=== PATIENT | female | born 1960 | race Caucasian/White ===

== ENCOUNTER 2016-11-13 10:29 | Inpatient (IN) | payer OTHER ==
--- NOTE | 2016-11-13 11:30 | EDPHY ---
H & P Stated Complaint: eyes don't feeel like they're focusing going on for 1 week "i think cristopher higuera Time Seen by Provider: 11/13/16 11:29 - Personal History Current Tetanus/Diphtheria Vaccine: Yes Current Tetanus Diphtheria and Acellular Pertussis (TDAP): Yes - Medical/Surgical History Hx Asthma: No Hx Chronic Respiratory Disease: No Hx Diabetes: No Hx Cardiac Disease: No Hx Renal Disease: No Hx Cirrhosis: No Hx Alcoholism: No Hx HIV/AIDS: No Hx Splenectomy or Spleen Trauma: No Other PMH: breast ca in 1998 - Social History Smoking Status: Never smoked Constitutional: Initial Vital Signs Temperature (C) 37.2 C 11/13/16 10:32 Heart Rate 108 H 11/13/16 10:32 Respiratory Rate 16 11/13/16 10:32 Blood Pressure 147/85 H 11/13/16 10:32 O2 Sat (%) 97 11/13/16 10:32 O2 Delivery Mode Room Air Allergies/Adverse Reactions: No Known Allergies Allergy (Verified 04/17/14 16:29) Home Medications: Medication Instructions Recorded C/E/Zn/Cu/OM3/DHA/EPA/LUT/ZEAX 1 each PO DAILY 11/13/16 [Preservision Areds 2 Softgel] Herbals/Supplements -Info Only 1 ea PO DAILY 11/13/16 Multivitamins [Multivitamin (*)] 1 each PO DAILY 11/13/16 Ovid-3 Fatty Acids [Fish Oil 1000 1,000 mg PO DAILY 11/13/16 mg (*)] Medical Decision Making ED Course/Re-evaluation: CHIEF COMPLAINT: Word-finding difficulties HISTORY OF PRESENT ILLNESS: 56-year-old female who claims that about 2 months ago her menopause kicked in very strongly. She states that her and her noticed that she was having difficulty thinking of words or possibly a stating the words she was thinking of. She also claims that her gait has been a little bit wobbly. She states that her right eye seems a little blurry at times. She denies any fevers or chills. She denies any infectious symptoms. She denies any trauma. She believes that this is menopause. She states that abruptly a couple months ago she started having these troubles which very specifically have to do with her ability to communicate with people. REVIEW OF SYSTEMS: A 10 point review of systems was performed and is negative with the exception of the elements mentioned in the history of present illness. PHYSICAL EXAM: HR, BP, O2 Sat, RR. Temp noted General Appearance: Alert, well hydrated, appropriate, and non-toxic appearing. Head: Atraumatic without scalp tenderness or obvious injury Eyes: Pupils equal, round, reactive to light and accommodation, EOMI, no trauma , no injection. Ears: Clear bilaterally, no perforation, normal landmarks Nose: Atraumatic, no rhinorrhea, clear. Throat: There is no erythema or exudates, no lesions, normal tonsils, mucus membranes moist. Neck: Supple, 2+ carotid upstroke, nontender, no lymphadenopathy. Respiratory: No retractions, no distress, no wheezes, and no accessory muscle use. Lungs are clear to auscultation bilaterally. Cardiovascular: Regular rate and rhythm, no murmurs, rubs, or gallops. Bilateral carotid, radial, dorsalis pedis, and posterior tibial pulses intact. Good capillary refill all extremities. Gastrointestinal: Abdomen is soft, nontender, non-distended, no masses, no rebound, no guarding, no peritoneal signs. Musculoskeletal: Normal active ROM of all extremities, atraumatic. Neurological: This patient has what I believe to be a mild Broca's aphasia. Alert, appropriate, and interactive. The patient has normal DTRs and non-focal cranial nerves, motor, sensory, and cerebellar exam. Skin: No rashes, good turgor, no nodules on palpation. Past medical history: Patient denies besides remote history of left breast cancer and menopause Past surgical history: Left lumpectomy Family history: Noncontributory Social history: , lives at home with her , does not abuse tobacco drugs or alcohol, retired DIAGNOSTICS/PROCEDURES/CRITICAL CARE TIME: Study: MRI of the: Brain with and without contrast Indication: possible Broca's aphasia Results: MRI scan of the body parts was obtained. The results of the study are 5x5x4.7cm meningioma. I viewed the images myself on the PACS system. DIFFERENTIAL DIAGNOSIS: The differential diagnosis for the patient's neurologic deficits included but was not limited to peripheral causes, central causes including CVA, TIA, electrolyte abnormalities and dehydration, cardiogenic causes, atypical causes like migraine syndrome. MEDICAL DECISION MAKING: This patient had an abrupt onset approximately 2 maybe 3 months ago of difficulty with speech and some gait disturbance. She has been blame it on menopause and has not sought medical care. 1 of her friends mention that she just does not seem right and she should get checked out so she presented here today. Neurologically she does have a mild Broca's aphasia. She does not have any peripheral deficits that I can elicit. MRI without contrast of the brain additional laboratory studies are pending. This patient is not exhibiting any infectious symptoms. The MRI per radiology shows a large baseball-sized meningioma that is clearly the cause of the patient's symptoms. The patient was given Keppra to prophylax seizures. I spoke to Dr. Elder, neurosurgery. He recommends 10mg IV Decadron in addition to the Keppra and will most likely take the patient to the operating room. 1320: Reassessed patient. I informed her of the MRI results. Dr. Elder will admit the patient for the time being. 1334: Consulted with Dr. Elder, who has viewed the patient's imaging. He will have us admit the patient to the hospitalist to be cleared for surgery. 1344: Consulted with Amaris Sanford, hospitalist. She accepts admission for Dr. Pelayo. 1404: Consulted with Dr. Elder after his evaluation of the patient. He recommends borja-scanning the patient prior to surgery. The majority of these studies will be performed when she is on the floor. - Data Points Laboratory Results: Laboratory Results 11/13/16 11:30 11/13/16 11:30 11/13/16 11/13/16 11/13/16 11:55 11:40 11:30 WBC 7.93 10^3/uL (3.80-9.50) RBC 4.58 10^6/uL (4.18-5.33) Hgb 14.8 g/dL (12.6-16.3) POC Hgb 15.0 gm/dL (12.3-15.9) Hct 42.0 % (38.0-47.0) POC Hct 44 % (35.5-47.5) MCV 91.7 fL (81.5-99.8) MCH 32.3 pg (27.9-34.1) MCHC 35.2 g/dL (32.4-36.7) RDW 12.6 % (11.5-15.2) Plt Count 284 10^3/uL (150-400) MPV 10.1 fL (8.7-11.7) Neut % (Auto) 74.7 H % (39.3-74.2) Lymph % (Auto) 18.7 % (15.0-45.0) [place] % (Auto) 5.3 % (4.5-13.0) Eos % (Auto) 0.1 L % (0.6-7.6) Baso % (Auto) 0.8 % (0.3-1.7) Nucleat RBC Rel Count 0.0 % (0.0-0.2) Absolute Neuts (auto) 5.93 10^3/uL (1.70-6.50) Absolute Lymphs (auto) 1.48 10^3/uL (1.00-3.00) Absolute Monos (auto) 0.42 10^3/uL (0.30-0.80) Absolute Eos (auto) 0.01 L 10^3/uL (0.03-0.40) Absolute Basos (auto) 0.06 10^3/uL (0.02-0.10) Absolute Nucleated RBC 0.00 10^3/uL (0-0.01) Immature Gran % 0.4 % (0.0-1.1) Immature Gran # 0.03 10^3/uL (0.00-0.10) POC Sodium 142 mEq/L (134-144) Sodium 140 mEq/L (134-144) POC Potassium 3.6 mEq/L (3.3-5.0) Potassium 3.9 mEq/L (3.5-5.2) POC Chloride 104 mEq/L (96-108) Chloride 104 mEq/L (97-110) Carbon Dioxide 25 mEq/l (22-31) Anion Gap 11 mEq/L (8-16) POC BUN 7 mg/dL (7-23) BUN 8 mg/dL (7-23) Creatinine 0.7 mg/dL (0.6-1.0) POC Creatinine 0.6 mg/dL (0.6-1.2) Estimated GFR > 60 Glucose 104 H mg/dL (70-100) POC Glucose 110 H mg/dL (70-100) Calcium 9.4 mg/dL (8.5-10.4) Urine Color PALE YELLOW Urine Appearance CLEAR Urine pH 7.0 (5.0-7.5) Ur Specific [place] 1.004 (1.002-1.030) Urine Protein NEGATIVE (NEGATIVE) Urine Ketones NEGATIVE (NEGATIVE) Urine Blood 1+ H (NEGATIVE) Urine Nitrate NEGATIVE (NEGATIVE) Urine Bilirubin NEGATIVE (NEGATIVE) Urine Urobilinogen NEGATIVE EU (0.2-1.0) Ur Leukocyte Esterase NEGATIVE (NEGATIVE) Urine RBC 25-50 H /hpf (0-3) Urine WBC NONE SEEN /hpf (0-3) Ur Epithelial Cells TRACE /lpf (NONE-1+) Ur Culture Indicated? NOT INDICATED (NI) Urine Glucose NEGATIVE (NEGATIVE) Medications Given: Discontinued Medications Dexamethasone (Decadron Injection) 10 mg IVP EDNOW ONE Stop: 11/13/16 13:20 Last Admin: 11/13/16 13:49 Dose: 10 mg Sodium Chloride (Ns) 1,000 mls @ 0 mls/hr IV ONCE ONE PRN Reason: Wide Open Stop: 11/13/16 11:40 Last Admin: 11/13/16 13:48 Dose: 1,000 mls Levetiracetam 1,000 mg/ Sodium (Chloride) 110 mls @ 440 mls/hr IV EDNOW ONE Stop: 11/13/16 13:19 Last Admin: 11/13/16 13:40 Dose: 110 mls Point of Care Test Results: 11/13/16 11:40 POC Sodium 142 POC Potassium 3.6 POC Chloride 104 POC BUN 7 POC Creatinine 0.6 POC Glucose 110 H Departure - Departure Disposition: [facility] Clinical Impression: Brain mass, Aphasia Condition: Fair Report Scribed for: Jhon Landeros Report Scribed by: Eulalio Pereira Date of Report: 11/13/16 Time of Report: 13:05
[2016-11-13] MEDS ORDERED: NS 1,000 ML IV ONE (11:39)
--- NOTE | 2016-11-13 11:58 | CPEKG ---
Heart Rate: 92 RR Interval: 652 P-R Interval: 148 QRSD Interval: 84 QT Interval: 384 QTC Interval: 476 P [place]: 35 QRS [place]: -3 T Wave [place]: 35 EKG Severity - NORMAL ECG - EKG Impression: SINUS RHYTHM Electronically Signed By: Jhon Landeros 13-Nov-2016 21:18:04
[2016-11-13 11:59] LABS: % IMMATURE GRANULYOCYTES 0.4 % (0.0-1.1); ABSOLUTE IMMATURE GRANULOCYTES 0.03 10^3/uL (0.00-0.10); ADD DIFF? NO; ADD MORPH? NO; ADD SCAN? NO; ATYPICAL LYMPHOCYTE FLAG 10 (0-99); FRAGMENT RBC FLAG 0 (0-99); HEMOGLOBIN 14.8 g/dL (12.6-16.3); LEFT SHIFT FLG 0 (0-99); LIPEMIA HEMOLYSIS FLAG 90 (0-99); MEAN CELL HEMOGLOBIN 32.3 pg (27.9-34.1); MEAN CELL HEMOGLOBIN CONCENTR. 35.2 g/dL (32.4-36.7); MEAN CELL VOLUME 91.7 fL (81.5-99.8); MEAN PLATELET VOLUME 10.1 fL (8.7-11.7); PLATELET CLUMPS FLAG 0 (0-99); PLATELET COUNT 284 10^3/uL (150-400); RED BLOOD CELL COUNT 4.58 10^6/uL (4.18-5.33); RED CELL DISTRIBUTION WIDTH 12.6 % (11.5-15.2)
[2016-11-13 12:12] LABS: ANION GAP 11 mEq/L (8-16); CALCIUM 9.4 mg/dL (8.5-10.4); CARBON DIOXIDE 25 mEq/l (22-31); CHLORIDE 104 mEq/L (97-110); CREATININE 0.7 mg/dL (0.6-1.0); GLOMERULAR FILTRATION RATE > 60; GLUCOSE 104 mg/dL (70-100); POTASSIUM 3.9 mEq/L (3.5-5.2); SODIUM 140 mEq/L (134-144)
[2016-11-13 12:12] LABS: COLOR PALE YELLOW; LEUKOCYTE ESTERASE,URINE NEGATIVE (NEGATIVE); NITRITE,URINE NEGATIVE (NEGATIVE)
[2016-11-13] MEDS ORDERED: GADOBUTROL 10 ML VIAL IVP ONE ×2 (12:22→19:28)
[2016-11-13 12:26] LABS: RBC,URINE 25-50 /hpf (0-3)
[2016-11-13 12:29] LABS: WBC,URINE NONE SEEN /hpf (0-3)
[2016-11-13] MEDS ORDERED: levETIRAcetam 1,000 MG in NS 100 ML IV ONE (13:05)
[2016-11-13] MEDS ORDERED: DEXAMETHASONE 10 MG/ML VIAL IVP ONE (13:19)
[2016-11-13] MEDS ORDERED: DEXAMETHASONE 10 MG/ML VIAL ONE (13:19)
--- NOTE | 2016-11-13 13:27 | MR ---
MRI of the Brain (Without and With Contrast) 1205 hours Clinical Indication: Word finding difficulties. Technique: T1-weighted images were acquired axially and sagittally from the foramen magnum to the ve rtex. Axial fast inversion recovery, fast T2-weighted, and diffusion-weighted axial images were obta ined without contrast. Postcontrast axial, coronal, and sagittal T1-weighted images with the uneventf ul intravenous administration of 6.5 mL Gadavist contrast. Findings: Extending from the left middle cranial fossa paracavernous region, there is a heterogeneou s enhancing mass measuring 4.7 x 5 cm in axial dimension and 5.5 cm in cephalocaudal dimension which abuts the left paracavernous region, left side of the paracavernous carotid, extending cephalad and d isplacing the left middle cerebral artery vessels ventrally. The lesion has slightly decreased T2 sig nal with large surrounding vessels and heterogeneous enhancement most likely representing a meningiom a. The mass is just posterior to the left sylvian fissure. There is surrounding edema involving the p osterior aspect of the left temporal and parietal lobes with mass effect on the left cerebral hemisph ere and resulting rightward midline shift, right subfalcine herniation of 15 mm. Partial effacement o f the left lateral ventricle. Enlargement of the right lateral ventricle and temporal horn suggesting partial occlusion of the third ventricle with mild right-sided hydrocephalus. The brainstem especial ly mesencephalon and left cerebral peduncle are displacing compressed towards the right. Fourth ventr icle is patent. No additional enhancing lesions. No acute infarct, acute hemorrhage, or epidural/subdural hematomas. Pituitary gland is normal in size. Cerebellar tonsils are in normal position. Paranasal sinuses are c lear. Impression: Left temporal lobe extraaxial 5 x 4.7 x 5.5 cm heterogeneous enhancing lesion most likel y representing meningioma with large amount of surrounding edema and mass effect resulting in rightwa rd subfalcine and uncal herniation with 15 mm rightward shift and ventriculomegaly. Findings and recommendations discussed with Emergency Department physician, Dr. Jhon Landeros, at 1305 hours today. Final report concurs with initial preliminary interpretation.
--- NOTE | 2016-11-13 14:40 | PDHOSCONS ---
Hospitalist Consult Hospitalist Consult: Date of service 11/13/2016 Requesting physician: Dr. Elder Reason for consult: Medical management History of presenting illness: This is a 56-year-old female with history of breast cancer diagnosed in 1998 treated with lumpectomy, chemotherapy, and radiation who has had negative mammograms presents to the emergency department today with memory loss, troubles with her balance common vision changes. Over the past year the patient has noticed some memory loss which she has attributed to menopause. Her family notes that her memory loss has gotten worse over the past few months. Patient came to the emergency department today for further evaluation where she was found to have a large brain mass. Patient denies any subjective numbness or weakness in her extremities. She has been having some trouble walking which she attributes problems with balance. She sustained a mechanical fall a few days ago which she did not tell anyone about. She denies any fevers. She denies any nausea and vomiting. She has lost 20 lb which she attributes to working out and dietary changes. She has been much more tired than usual over the past few months and sleeping more than usual. Past medical history: Breast cancer Past surgical history: section x2 Home medications: were reviewed refer to [employer] for details Allergies: no known drug allergies Social history: patient lives in [place] with her . she denies any alcohol tobacco or illicit drug use Family history: significant for stroke in her mother Review of systems: A comprehensive 10 point review systems was done that was negative except for what was mentioned in the HPI and below. PHYSICAL EXAM: 11/13/16 10:32 Heart Rate 108 H Respiratory 16 Rate O2 Sat (%) 97 Temperature (C) 37.2 C Blood Pressure 147/85 H O2 Delivery Room Air Mode GENERAL: Well-appearing, no acute distress, nontoxic appearing HEENT: Head is normocephalic atraumatic, eyes are PERRLA, ears are normal appearing, mucous membranes are moist without lesions CARDIOVASCULAR: Regular rate and rhythm; normal S1 and S2 without murmurs, rubs , clicks, gallops; there is no JVD; there is no lower extremity edema PULMONARY: Lungs are clear to auscultation bilaterally without wheezes, rales, rhonchi; respiratory effort is nonlabored without signs of acute respiratory distress. ABDOMINAL/GASTROINTESTINAL: Soft, nontender, nondistended with normoactive bowel sounds. There is no guarding or rebound tenderness. GENITOURINARY: No Johnson in place EXTREMITIES: No clubbing, cyanosis, or edema NEUROLOGIC: Cranial nerves 2-12 are grossly intact; face symmetric; moves all other extremities; speech is fluent; alert and oriented to person, place, and time; patient is slightly hyper reflexive right patella ; pronator drift is negative; 5-muscle strength right upper extremity flexion SKIN: There are no rashes; I did not examine the patient for decubiti Diagnostics: 11/13/16 11:30 WBC 7.93 Hgb 14.8 Hct 42.0 Plt Count 284 Sodium 140 Potassium 3.9 Chloride 104 Carbon Dioxide 25 BUN 8 Creatinine 0.7 Glucose 104 H Imaging: I visualized personally reviewed the brain MRI that shows: Left temporal lobe extraaxial 5 x 4.7 x 5.5 cm heterogeneous enhancing lesion most likely representing meningioma with large amount of surrounding edema and mass effect resulting in rightward subfalcine and uncal herniation with 15 mm rightward shift and ventriculomegaly. I visualized and personally interpreted the EKG sinus rhythm rate 92 beats per minute with no acute ischemic changes Assessment: this is a 56-year-old female presenting with vague neurologic symptoms consisting of memory loss, problems with balance, changes in vision found to have: # left temporal lobe extra-axial mass most likely due to meningioma # history of breast cancer Plan: - Patient has been admitted by neurosurgery plans to take the patient for resection later on this week. At this time I do not see any medical contraindications to surgery - I discussed the case with Dr. Elder is recommending a metastatic workup given her history of breast cancer. Thank you for allowing the hospital medicine team to assist with the care of this delightful patient.
[2016-11-13] MEDS ORDERED: POLYETHYLENE GLYCOL 3350 17 GM PKT PO PRN (16:22)
[2016-11-13] MEDS ORDERED: BISACODYL 10 MG SUPP PR PRN (16:22)
[2016-11-13] MEDS ORDERED: LACTULOSE 20 GM/30 ML UDCUP PO PRN (16:22)
[2016-11-13] MEDS ORDERED: MAGNESIUM HYDROXIDE 30 ML UDCUP PO PRN (16:22)
[2016-11-13] MEDS ORDERED: ACETAMINOPHEN 325 MG TAB PO PRN (16:22)
[2016-11-13] MEDS ORDERED: ONDANSETRON 4 MG/2 ML VIAL IVP PRN (16:22)
[2016-11-13] MEDS ORDERED: niCARdipine/NACL 200 ML IV PRN (16:22)
--- NOTE | 2016-11-13 16:24 | GHP ---
[f rep st] HISTORY AND PHYSICAL DATE OF ADMISSION: 11/13/2016 ER CONSULTATION NOTE/HISTORY AND PHYSICAL: REASON FOR CONSULTATION: Left large intracranial mass with personality changes. HISTORY OF PRESENT ILLNESS: Ms Menjivar is an 56-year-old woman with a known history of breast cancer , status post lumpectomy, chemo and radiation therapy, who states that over the last several weeks to months, she has noted symptoms which she attributed to possibly going through menopause. Her husban d and she have noticed that she has had some behavioral changes which were little bit unusual for her , and she relates some minor difficulty with her vision recently and is having more difficulty with e xpressing her thoughts. She has no difficulty with understanding or comprehending. She has noticed some difficulty with her balance as well. Denies any headaches. She has not had any unexpected weig ht loss. No numbness, tingling, pain, or weakness of the upper or lower extremities. No difficulty with her speech, swallow, and not coughing on food. Hearing has been unremarkable as well. She brou ght herself to the [facility] Emergency Department for further evaluation and managem ent, where she underwent imaging of the brain which demonstrated a large, approximately 4.7 x 5 x 5.5 cm mass within the left para-cavernous region, left side of the para-cavernous carotid, extending ce phalad and displacing the left MCA. A Neurosurgical consultation was requested. At this point, the patient states that she is not having any acute changes in her symptoms. Her husb and is at her bedside. PAST MEDICAL HISTORY: History of breast cancer, status post lumpectomy, chemotherapy, and radiation therapy. SOCIAL HISTORY: She is essentially retired. She is and denies tobacco use. ALLERGIES: No known drug allergies. MEDICATIONS: No home medications. REVIEW OF SYSTEMS: A 10-point review of systems was reviewed by myself. The patient intake form is negative except for those as noted above in the HPI. FAMILY HISTORY: Negative for any brain tumors. PHYSICAL EXAMINATION: VITAL SIGNS: Blood pressure is 147/85, heart rate is 108, respiratory rate 16 , she is saturating 97% on room air, temperature is 37.2. GENERAL: The patient is lying on the gurn ey, is in no acute distress. She is quite pleasant and cooperative with the examination. Her affect appears to be appropriate. is at the bedside. HEENT: Head is atraumatic, normocephalic. Pupils are equal, round, and reactive to light bilaterally. Her extraocular movements are intact. O ropharynx is moist. CARDIOVASCULAR AND PULMONARY: Deferred. MOTOR EXAM: She has 5/5 strength in b ilateral glass deposition tender strength, biceps, triceps, deltoids, bilateral knee flexion and extension, plantar dors iflexion. SENSORY EXAM: She has intact sensation to light touch throughout all major dermatomes of the bilateral upper and lower extremities throughout. NEUROLOGIC: Cranial nerves 2-12 appear to be intact. She has intact hearing to light finger scratch bilaterally. Intact sensation to light touch on her face bilaterally. Face is symmetric. Tongue protrudes midline. Uvula and palate elevate sy mmetrically. Shoulder shrug is symmetric. Her extraocular movements are intact. Pupils are equal, round, reactive to light bilaterally. OTHER: She has no Wai, no Babinski. Bilateral brachiora dialis and patellar reflexes are 1+. She has no pronator drift. MEDICAL DECISION MAKING: Patient underwent an MRI of the brain with and without contrast completed, both in the hospital PAC system on the November, and reviewed by myself. There is evidenc e of a left temporal lobe extra-axial 5 x 4.7 x 5.5 cm heterogeneous enhancing lesion abutting the le ft para-cavernous region, left side of the para-cavernous carotid and extending cephalad, displacing the left middle cerebral artery vessels ventrally. Just posterior to the sylvian fissure, with surro unding edema, with right falcine herniation of 15 mm. There is partial effacement of the left latera l ventricle. There is slight enlargement of the right lateral ventricle and temporal horn, suggestin g partial occlusion of the 3rd ventricle with mild hydrocephalus. The brainstem is displaced and com pressed toward the right. The 4th ventricle is patent. This likely represents a meningioma with lar ge surrounding amount of edema and mass effect. ASSESSMENT AND PLAN: Ms Menjivar is an otherwise fairly healthy 56-year-old woman, with no history of breast cancer, who presents with a several week to month history of ongoing behavioral changes as we ll as some difficulty with her vision and balance. These were all initially attributed to menopausal symptoms, but imaging demonstrates that she has a very large, 4.7 x 5 x 5.7 cm lesion along the left temporal lobe, which is likely consistent with meningioma. At this point, I had an extensive conver sation with the patient and her , with her treatment options including no intervention, chemor adiation, biopsy with or without chemoradiation, and open biopsy/resection with chemoradiation, depesau yu on the pathology. With her history of breast cancer, although this is likely a meningioma, I di d explain to her that this could be a metastatic lesion. She has not had a metastatic workup for her breast cancer in years, and therefore for further information, we will obtain a neuro axis MRI scan, including the cervical, thoracic, and lumbar spine with and without contrast. We will also get a CT of the chest, abdomen, and pelvis with and without contrast, to ensure there were no other enhancing lesions. She will likely require surgery for this and she is interested in pursuing surgical interv ention. I have discussed the case with my partner, Dr. Monster Mckenzie, one of our tumor specialists, and we will consider possible embolization with open surgery of the lesion sometime in the next few days . We will admit the patient with steroids and Keppra for now, and obtain the imaging studies. We pollack ve requested that Medicine see the patient to help clear her for surgical intervention. This plan was discussed with the patient and her , the medicine team, as well as Dr. Leti york the emergency department, and all were in agreement with this treatment plan. /[id number]/MODL
[2016-11-13] MEDS ORDERED: NS W/ 20 KCl/L 1,000 ML IV SCH (16:30)
[2016-11-13] MEDS ORDERED: DEXAMETHASONE VARIABLE DOSE IVP/PO SCH (18:00)
[2016-11-13] MEDS: DEXAMETHASONE 10 MG/ML VIAL IVP SCH ×2 (18:16→23:39)
[2016-11-13] MEDS: levETIRAcetam 750 MG in NS 100 ML IV SCH (21:09)
[2016-11-13] MEDS: FAMOTIDINE 20 MG/NACL 50 ML IV SCH (21:49)
[2016-11-13] MEDS: SENNOSIDES/DOCUSATE SODIUM TAB PO SCH (21:51)
--- NOTE | 2016-11-13 22:13 | MR ---
MRI Cervical Spine (Without and With Contrast) 1833 hours History: Intracranial mass. Evaluate for possible additional cervical mass. Technique: Sagittal T1, T2 and axial T1, T2 MR sequences of the cervical spine without contrast. Post contrast sagittal and axial T1-weighted sequences obtained with the uneventful intravenous administra tion of 4.0 mL Gadavist. Findings: Cervical vertebral bodies are normal in height, signal intensity and alignment without c ompression fractures or spondylolisthesis. Cerebellar tonsils are in normal position. Cervical spina l cord demonstrates normal signal without cord edema or myelomalacia. C2-C3: Normal. C3-C4: No desiccation or loss of disk height. There is minimal disk bulge without consequences. C4-C5: No desiccation or loss of disk height. Minimal posterior central disk bulge without consequenc es. C5-C6: Mild to moderate desiccation and loss of disk height. There is mild to moderate disk bulge johnny ng with marginal osteophyte that abuts the interim margin of the cervical spinal cord with mild to mo derate spinal stenosis and mild bilateral neural foraminal stenosis. C6-C7: Mild to moderate degenerative disk disease with desiccation and loss of disk height. There is mild diffuse disk bulge causing mild compression upon the anterior dural sac with borderline spinal s tenosis. C7-T1: Normal. Impression: 1. No evidence of enhancing mass associated with the cervical spinal cord or spinal canal. 2. Degenerative disk disease lower cervical spine most prominent at C5-C6 as detailed above. Please see findings at specific disk levels.
--- NOTE | 2016-11-13 22:37 | MR ---
MRI of the Thoracic Spine (Without and With Contrast) 1917 hours Reason for examination: Intracranial mass. Rule out mass thoracic spinal region. Technique: Sagittal T1, FSE T2 2nd echo with fat suppression and STIR imaging. Axial T1 and FSE T2 2n d echo imaging with fat suppression. Postcontrast T1 sagittal with fat saturation and axial without f at saturation imaging was also obtained after the administration of 4.0 mL Gadovist IV contrast. Findings: Thoracic alignment is anatomic. Disk spaces are well-maintained. There is incidental tiny posterior central disk bulge at T8-T9 and mild diffuse disk bulge at T11-T12 without significant cons equences. There is mild right-sided facet hypertrophy at T9-T10 in left-sided facet hypertrophy at T1 0-T11. The thoracic neural canal is normal in size. The thoracic cord looks normal. No enhancing mass es are seen. The conus medullaris occurs at T12-L1. Thoracic foramen are widely patent. On the axial images there is a mildly heterogeneous signal within the CSF space around the thoracic s bettina cord. This is felt be related to pulsation artifact. No underlying mass is seen on the correspo nding sagittal imaging. Impression: 1. No evidence of abnormal enhancement or enhancing masses associated with the thoracic spinal cord o r Spinal canal. 2. Minimal disk bulges lower thoracic spine along with some facet hypertrophy without significant con sequences..
--- NOTE | 2016-11-13 22:41 | MR ---
MRI of the Lumbar Spine (Without and With Contrast) 1950 hours Clinical Indications: Intracranial mass. Evaluate for possible Mass lumbar spinal region. Technique: Sagittal and axial T1 and T2 MR sequences of the lumbar spine without contrast. Axial i maging from T12 through S1. Post contrast sagittal and axial T1-weighted images with the uneventful i ntravenous administration of 4.0 mL of Gadavist also performed. Findings: Lumbar vertebral bodies are of normal height without compression fractures. Conus medulla ris appears normal and ends at L1. Bone marrow signal is normal. There is no evidence of enhancing m ass within the lumbar spinal canal. T12-L1: No disk herniation or stenosis. L1-L2: No disk herniation or stenosis. L2-L3: No disk herniation or stenosis. L3-L4: No desiccation or loss of disk height. There is mild disk bulge without consequences. L4-L5: Moderate loss of disk height with desiccation. Modic type II fatty endplate changes are noted. There is mild disk bulge causing mild compression upon the dural sac without significant spinal sten osis. There is mild bilateral neural foraminal stenosis. L5-S1: No desiccation or loss of disk height. Mild diffuse disk bulge without significant consequence s. Impression: 1. No evidence of abnormal mass or enhancement within the lumbar spinal canal. 2. Mild disk bulges without significant consequences.. Please see findings at specific disk levels.
[2016-11-14] MEDS: DEXAMETHASONE 10 MG/ML VIAL IVP SCH ×4 (07:56→23:54)
--- NOTE | 2016-11-14 08:02 | NEUSURGPN ---
Assessment/Plan: 56y/o female with large left temporal brain mass - MRI of c/t/l spine negative for mass -Seen by Dr. Rondon and Dr. Elder this morning. Discussed surgical intervention for later this week. -Continue Decadron -Okay for transfer to the floor -Q4 hour neuro checks. -Please notify NS with any change in neuro/motor exam Subjective: Speech improving. Still with some aphasia and some right sided blurry vision. Objective: NAD A&Ox3 CN II-XII grossly intact. Face symmetric - Physician Discussed Patient with .: Hi Neurosurgery Physical Exam - Vitals, I&O, Labs I and O 11/13/16 11/14/16 11/15/16 05:59 05:59 05:59 Intake Total 2550 Output Total 600 300 Balance 1950 -300 Weight 68.039 kg Intake: Oral (ml) 250 IV Intake (ml) 1200 IV Infused (ml) 1100 Output: Urine (ml) 600 300 Toilet 600 300 Other: Number of Voids 3 Toilet 2 1 Vital Signs Temp Pulse Resp BP Pulse Ox 36.7 C 81 20 125/67 H 97 11/14/16 07:40 11/14/16 07:40 11/14/16 07:40 11/14/16 07:40 11/14/16 07:40 ICD10 Worksheet Patient Problems: Problems Problem Status Diagnosed Aphasia Acute Brain mass Acute
[2016-11-14] MEDS ORDERED: D50W 25 GM/50 ML SYR IVP PRN (08:23)
[2016-11-14] MEDS: levETIRAcetam 750 MG in NS 100 ML IV SCH ×2 (08:35→21:55)
[2016-11-14] MEDS: SENNOSIDES/DOCUSATE SODIUM TAB PO SCH ×2 (08:36→21:57)
[2016-11-14] MEDS: FAMOTIDINE 20 MG/NACL 50 ML IV SCH ×2 (08:36→21:54)
[2016-11-14 10:58] LABS: INR 1.04 (0.83-1.16); PROTIME(PATIENT) 13.5 SEC (12.0-15.0)
[2016-11-14 10:59] LABS: APTT 25.6 SEC (23.0-38.0)
[2016-11-14 12:15] LABS: HEMOGLOBIN A1C 5.5 % (4.0-6.0)
[2016-11-14] MEDS: INSULIN LISPRO 100 UNIT/ML SC SCH ×2 (12:22→17:50)
--- NOTE | 2016-11-14 14:50 | HOSPPROG ---
Hospitalist Progress Note Assessment/Plan: Assessment: 56-year-old female presenting with acute neurologic symptoms secondary to suspected meningioma with cerebral edema and mass effect Plan: 1. Suspected meningioma. Acute, newly diagnosed brain mass, extra-axial, located in the left temporal lobe -lesion is highly suspicious for meningioma and does not require further malignancy staging of the chest abdomen or pelvis, unless requested by the neurosurgical team -patient continues to experience neurologic symptoms including neologisms, expressive aphasia, intermittent visual symptoms and subjective ataxia -continue prophylactic anti-epileptics if deemed appropriate by Neurosurgery -plan is for angiography staging on 11/15, followed by MRI and curative nerve surgery on 11/16 2. Cerebral edema with brain compression and mass effect, right shift, subfalcine herniation. Most likely contributing to patient's presenting symptoms -initiated on empiric IV steroids, continue -q.4 hours neuro checks and vital sign 3. Hyperglycemia. Reactive, secondary to steroids -get hemoglobin A1c to evaluate for underlying glucose intolerance -placed on insulin sliding scale given that she is a preop and glucose management may be relevant healing The Hospital Medicine service will continue to consult in this patient's care. Subjective: Reports ongoing expressive aphasia, intermittent visual symptoms Objective: Vital Signs Temp Pulse Resp BP Pulse Ox 36.9 C 83 16 112/76 95 11/14/16 11:29 11/14/16 11:29 11/14/16 11:29 11/14/16 11:29 11/14/16 11:29 11/13/16 11/14/16 11/15/16 05:59 05:59 05:59 Intake Total 2550 110 Output Total 600 300 Balance 1950 -190 PT 13.5 SEC (12.0-15.0) 11/14/16 10:34 INR 1.04 (0.83-1.16) 11/14/16 10:34 - Time Spent With Patient Time Spent with Patient: greater than 35 minutes Time Spent with Patient: Greater than 35 minutes spent on this patients care, greater than 50% of time spent counseling, educating, and coordinating care regarding the above mentioned plan. - Physical Exam Constitutional: no apparent distress, appears nourished, not in pain Neurologic: AAOx3, sensation intact bilaterally, CN II-XII Intact, other ( Occasional expressive aphasia and neologisms), No weakness (Motor strength 5/5 bilateral upper and lower extremities) Psychiatric: interacting appropriately, not anxious, not encephalopathic, thought process linear ICD10 Worksheet Patient Problems: Problems Problem Status Diagnosed Aphasia Acute Brain mass Acute
[2016-11-15] MEDS: DEXAMETHASONE 10 MG/ML VIAL IVP SCH ×3 (06:41→17:40)
--- NOTE | 2016-11-15 08:21 | NEUSURGPN ---
Assessment/Plan: 56 yo female with large left sided tumor with 15mm of MLS and uncal herniation. Presented with MS changes including visual and balance problems as well as speech problems all of which have improved with steroids with the exception of some speech issues. MRI C/T/L spine Doing well this AM Plan: Angio Brain afternoon. Surgery olanned for Sunday. Still needs CT C/A/P for metastatic workup. Subjective: awake, alert. feeling "better" She notes her vision and balance issues have improved. Still has some mild speech issues. Objective: Neuro: [place], Sens +LT No drift, no facial droop speech clear and fluent equal strength in arms/hands Neurosurgery Physical Exam - Vitals, I&O, Labs I and O 11/14/16 11/15/16 11/16/16 05:59 05:59 05:59 Intake Total 2550 210 Output Total 600 300 Balance 1950 -90 Weight 68.039 kg Intake: Oral (ml) 250 100 IV Intake (ml) 1200 IV Infused (ml) 1100 110 levETIRAcetam 750 mg In 110 Ns 100 ml @ 420 mls/hr IV BID [facility] Rx#:[id number] Output: Urine (ml) 600 300 Toilet 600 300 Other: Intake Quantity Yes Sufficient Number of Voids 3 Toilet 2 1 Vital Signs Temp Pulse Resp BP Pulse Ox 36.6 C 77 16 124/67 H 92 11/15/16 07:32 11/15/16 07:32 11/15/16 07:32 11/15/16 07:32 11/15/16 07:32 ICD10 Worksheet Patient Problems: Problems Problem Status Diagnosed Aphasia Acute Brain mass Acute
[2016-11-15] MEDS: INSULIN LISPRO 100 UNIT/ML SC SCH ×3 (09:22→17:40)
[2016-11-15] MEDS: levETIRAcetam 750 MG in NS 100 ML IV SCH ×2 (09:43→21:03)
[2016-11-15] MEDS: SENNOSIDES/DOCUSATE SODIUM TAB PO SCH ×3 (09:56→21:07)
[2016-11-15] MEDS: FAMOTIDINE 20 MG/NACL 50 ML IV SCH ×2 (10:29→20:55)
--- NOTE | 2016-11-15 16:05 | HOSPPROG ---
Hospitalist Progress Note Assessment/Plan: Assessment: 56-year-old female presenting with acute neurologic symptoms secondary to suspected meningioma with cerebral edema and mass effect Plan: 1. Suspected meningioma. Acute, newly diagnosed brain mass, extra-axial, located in the left temporal lobe -lesion is highly suspicious for meningioma and does not require further malignancy staging of the chest abdomen or pelvis, unless requested by the neurosurgical team or if pathology from surgery is another type of tissue -patient continues to experience neurologic symptoms including neologisms, expressive aphasia, intermittent visual symptoms -continue prophylactic anti-epileptics if deemed appropriate by Neurosurgery -plan is for angiography staging on 11/16, followed by MRI and curative nerve surgery on 11/17 -spent time counseling patient about STAND IN therapy anticipated post-op, as well as offering her support in light of her new diagnosis 2. Cerebral edema with brain compression and mass effect, right shift, subfalcine herniation. Most likely contributing to patient's presenting symptoms -initiated on empiric IV steroids, continue -q.4 hours neuro checks and vital sign 3. Hyperglycemia. Reactive, secondary to steroids -A1c 5.5%, no e/o glucose intolerance -placed on insulin sliding scale given that she is a preop and glucose management may be relevant healing The Hospital Medicine service will continue to consult in this patient's care. Subjective: Patient very concerned about her new diagnosis, anxious about future speech impairment Objective: Vital Signs Temp Pulse Resp BP Pulse Ox 37.0 C 87 16 123/86 H 94 11/15/16 15:37 11/15/16 15:37 11/15/16 15:37 11/15/16 15:37 11/15/16 15:37 11/14/16 11/15/16 11/16/16 05:59 05:59 05:59 Intake Total 2550 210 Output Total 600 300 Balance 1950 -90 PT 13.5 SEC (12.0-15.0) 11/14/16 10:34 INR 1.04 (0.83-1.16) 11/14/16 10:34 - Time Spent With Patient Time Spent with Patient: greater than 25 minutes Time Spent with Patient: Greater than 25 minutes spent on this patients care, greater than 50% of time spent counseling, educating, and coordinating care regarding the above mentioned plan. - Physical Exam Constitutional: appears nourished, not in pain, No no apparent distress, No uncomfortable Neurologic: AAOx3, sensation intact bilaterally, CN II-XII Intact, other ( intermittent expressive aphasia and neogolisms), No weakness ( motor 5/5), No facial droop Psychiatric: interacting appropriately, not encephalopathic, thought process linear, anxious, No agitated ICD10 Worksheet Patient Problems: Problems Problem Status Diagnosed Aphasia Acute Brain mass Acute
[2016-11-16] MEDS: DEXAMETHASONE 10 MG/ML VIAL IVP SCH ×4 (04:31→17:45)
[2016-11-16 05:41] LABS: HEMATOCRIT 37.8 % (38.0-47.0)
[2016-11-16 05:49] LABS: CREATININE 0.6 mg/dL (0.6-1.0); GLOMERULAR FILTRATION RATE > 60; INR 0.98 (0.83-1.16); PROTIME(PATIENT) 12.9 SEC (12.0-15.0)
[2016-11-16 05:50] LABS: APTT 25.1 SEC (23.0-38.0)
--- NOTE | 2016-11-16 07:17 | SOAPPROG ---
SOAP Progress Note Assessment/Plan: Assessment: 56 yo F with left frontotemporal lesion, likely meningioma Plan: stable npo for angio today at 1pm for emoblization of tumor plan for surgery tomorrow npo tonight at midnight please call with neuro changes discussed with DR Rondon 11/16/16 07:13 Subjective: no headaches, no N/V. Objective: Vital Signs Temp Pulse Resp BP Pulse Ox 36.9 C 75 16 135/73 H 95 11/16/16 04:00 11/16/16 04:00 11/16/16 04:00 11/16/16 04:00 11/16/16 04:00 Laboratory Results 11/16/16 05:19 11/16/16 05:19 11/15/16 11/16/16 11/17/16 05:59 05:59 05:59 Intake Total 210 300 Output Total 300 Balance -90 300 PT 12.9 SEC (12.0-15.0) 11/16/16 05:19 INR 0.98 (0.83-1.16) 11/16/16 05:19 AAOX4, +FC PERRL, EOMI, no facial droop SARAH x 4 + light touch ICD10 Worksheet Patient Problems: Problems Problem Status Diagnosed Aphasia Acute Brain mass Acute
[2016-11-16] MEDS ORDERED: POTASSIUM Cl (KCl) 20 MEQ in LR 1,000 ML IV SCH (07:30)
[2016-11-16] MEDS: INSULIN LISPRO 100 UNIT/ML SC SCH ×3 (07:53→16:51)
[2016-11-16] MEDS: levETIRAcetam 750 MG in NS 100 ML IV SCH ×2 (08:27→21:58)
[2016-11-16] MEDS: SENNOSIDES/DOCUSATE SODIUM TAB PO SCH ×2 (08:35→20:46)
[2016-11-16] MEDS: FAMOTIDINE 20 MG/NACL 50 ML IV SCH (09:13)
--- NOTE | 2016-11-16 10:06 | HOSPPROG ---
Hospitalist Progress Note Assessment/Plan: Assessment: 56-year-old female presenting with acute neurologic symptoms secondary to suspected meningioma with cerebral edema and mass effect Plan: 1. Suspected meningioma. Acute, newly diagnosed brain mass, extra-axial, located in the left temporal lobe -lesion is highly suspicious for meningioma and does not require further malignancy staging of the chest abdomen or pelvis, unless requested by the neurosurgical team or if pathology from surgery is another type of tissue -patient continues to experience neurologic symptoms including neologisms, expressive aphasia, intermittent visual symptoms -continue prophylactic anti-epileptics if deemed appropriate by Neurosurgery -plan is for angiography staging today, followed by MRI and curative nerve surgery on 11/17 -spent time counseling patient about AIRLINE FLIGHT ATTENDANT therapy anticipated post-op -patient and have many questions about her neurologic symptoms post-op, and I continued to offer support and advise that we will have to see how well she tolerates the surgery and what deficits remain, requiring therapy thereafter -RCRI score of 0 w/ good pre-op METs, rendering patient < 0.5% risk of ragini-op cardiovascular complication, low cardiac risk for a high risk neurosurgery 2. Cerebral edema with brain compression and mass effect, right shift, subfalcine herniation. Most likely contributing to patient's presenting symptoms -initiated on empiric IV steroids, continue -q.4 hours neuro checks and vital signs 3. Hyperglycemia. Reactive, secondary to steroids -A1c 5.5%, no e/o glucose intolerance -placed on insulin sliding scale given that she is a preop and glucose management may be relevant healing. Spoke with patient and RN regarding use of SCDs while in bed, ambulate when able , holding pharm DVT ppx pre-op. The Hospital Medicine service will continue to consult on this patient's care. Subjective: Patient is very anxious regarding her expressive aphasia Objective: Vital Signs Temp Pulse Resp BP Pulse Ox 36.9 C 67 14 120/67 93 11/16/16 07:34 11/16/16 07:34 11/16/16 07:34 11/16/16 07:34 11/16/16 07:34 Laboratory Results 11/16/16 05:19 11/16/16 05:19 11/15/16 11/16/16 11/17/16 05:59 05:59 05:59 Intake Total 210 300 Output Total 300 Balance -90 300 PT 12.9 SEC (12.0-15.0) 11/16/16 05:19 INR 0.98 (0.83-1.16) 11/16/16 05:19 - Time Spent With Patient Time Spent with Patient: greater than 25 minutes Time Spent with Patient: Greater than 25 minutes spent on this patients care, greater than 50% of time spent counseling, educating, and coordinating care regarding the above mentioned plan. - Physical Exam Constitutional: no apparent distress, appears nourished, not in pain Neurologic: AAOx3, other (Expressive aphasia intermittently), No facial droop Psychiatric: interacting appropriately, not encephalopathic, thought process linear, anxious, No agitated ICD10 Worksheet Patient Problems: Problems Problem Status Diagnosed Aphasia Acute Brain mass Acute
[2016-11-16] MEDS ORDERED: fentaNYL 100 MCG/2 ML INJ ONE (13:16)
[2016-11-16] MEDS ORDERED: MIDAZOLAM 2 MG/2 ML VIAL ONE (13:17)
[2016-11-16 14:48] LABS: MAGNESIUM 2.1 mg/dL (1.6-2.3); POTASSIUM 4.1 mEq/L (3.5-5.2)
--- NOTE | 2016-11-16 15:12 | POSTOPPROG ---
Post Op Note Date of Operation: 11/16/16 Surgeon: Carter Rondon Metal Tile Setter: none Anesthesiologist: none Anesthesia: IV Sedation (fentanyl 150mcg, versed 4mg) Pre-op Diagnosis: large left clinoidal meningioma Post-op Diagnosis: same Indication: see above Procedure: cerebral anigogram with tumor embolization Findings: successful tumor embolization via ethmoidal branches of IMAX Inf/Abcess present in the surg proc area at time of surgery?: No EBL: Minimal Complications: none Specimen(s): none
[2016-11-16] MEDS ORDERED: IOPAMIDOL (ISOVUE-300) 100 ML BTL IV ONE (15:18)
[2016-11-16] MEDS ORDERED: HEPARIN 10,000 UNIT/10 ML MDV ONE (15:22)
--- NOTE | 2016-11-16 18:46 | IR ---
Interventional Neuroradiology Angiogram November 16, 2016 Attending: Carter Rondon M.D. News Copy Editor: None. Procedure: 1. Selective catheterization and cerebral angiography right internal carotid artery. 2. Selective catheterization and cerebral angiography right external carotid artery. 3. Selective catheterization and cerebral angiography left vertebral artery. 4. Selective catheterization and cerebral angiography left internal carotid artery. 5. Selective catheterization and cerebral angiography left external carotid artery. 6. Microcatheter angiography left internal maxillary artery. 7. Embolization of tumor feeders via left internal maxillary artery, ethmoidal branches. 8. Follow up angiography through an existing catheter left common carotid artery. Preoperative Diagnosis: Large left clinoidal meningioma. Postoperative Diagnosis: Large left clinoidal meningioma. Brief Clinical History: Julissa Menjivar is a 56-year-old woman who presented with some speech disturbance and word finding difficulty when an MRI was done showing a large 5 cm left clinoidal, what appeared to be, meningioma. She was started on high-dose steroids and her speech problems improved. She has planned for a surgical resection of the tumor tomorrow, but we planned for a cerebral angiogram to map the vessels and for possible embolization through an external carotid branch, if possible, today. Anesthesia: The patient was given conscious sedation with 150 mcg of fentanyl and 4 mg of Versed. Total given in divided doses. Her vital signs and level of sedation were continuously monitored throughout the case and was supervised by myself. The sedation start time was 1336 with the sedation ending time of 1456. The patient tolerated the anesthesia well without any complications. Procedure in detail: After informed consent was obtained from the patient, the patient was brought to the angiography suite and placed in the supine position on the angiography table. A formal timeout was performed identifying the patient by name, medical record number, and date of . The medial border of the right femoral head was localized using fluoroscopy and 10 mL of 0.25% Marcaine was infiltrated in the skin for hemostasis. A small puncture was made and a 5-Ukrainian micropuncture set was used to gain access to the right common femoral artery over the femoral head. A 6-Ukrainian working Blanchester sheath was placed using Seldinger technique and was flushed. At this point, a 5-Ukrainian WHIT catheter over an 0.035 angled Glidewire was advanced through the sheath and into the aortic arch. High magnification roadmapping and direct fluoroscopic vision were used to selectively catheterize the right internal carotid artery, right external carotid artery, left vertebral artery, left internal carotid artery, and left external carotid artery. Diagnostic angiography was performed of each vessel with multiple AP, lateral, and oblique projections. After the diagnostic angiogram was performed, several branches suitable for embolization were identified in the left internal maxillary artery. At this point, using high magnification roadmapping, the diagnostic catheter was exchanged for a 6- Ukrainian Envoy guide catheter into the left external carotid artery. A 0.027 inch microcatheter was then advanced over a 0.016 microwire into the left external carotid artery. Using high magnification roadmapping, the microcatheter was advanced into the left internal maxillary artery and microcatheter angiography was performed into the left internal maxillary artery. The distal ethmoidal branches appeared to supply the tumor, therefore, the microcatheter was advanced close to this location and flushed. Using high magnification roadmapping and 200 to 300 micron PVA particles were embolized through the microcatheter under direct fluoroscopic vision into the distal internal maxillary artery. We continued infusing particles until the flow in the distal branches of the internal maxillary artery were slow and static and then the microcatheter was flushed and removed. Diagnostic angiography was again performed through the existing catheter and the external carotid artery showing that there was still some small branches, therefore, the microcatheter was again readvanced into the distal internal maxillary artery and a few more rounds of particles were placed until the vessels were completely static. At this point, the microcatheter was removed. The guide catheter was pulled back into the common carotid artery where diagnostic AP and lateral angiography was performed showing decreased blush of the tumor and all cerebral vessels were patent including the ophthalmic artery and a good choroidal blush was visualized. The guide catheter was then removed from the body. A right common femoral artery angiogram was performed showing that the sheath entered near the bifurcation, therefore, the sheath was removed and manual compression was held for approximately 8 minutes. The patient tolerated the procedure well, and there were no complications. At the end of the procedure, the groin was soft with no hematoma. Distal pulses were palpable. The vision was normal and the remainder of the neurological exam was normal. Radiographic Interpretation Right Internal Carotid Artery (Cerebral): The distal portions of the right cervical, petrous, and cavernous carotid artery appear normal. The ophthalmic origin is normal. There is a large posterior communicating artery with significant contribution of the posterior circulation. Crossing over to the contralateral HAND DRY CLEANER through the PCOM, a few small circumflex temporal branches are seen supplying some blush to the inferior portion of the tumor. The carotid bifurcation is normal. There is a large anterior communicating artery supplying flow across to the contralateral A2 and A1 segments and some to the MCA as well. The distal portions of the right middle cerebral artery and anterior cerebral artery appear normal. Right External Carotid Artery (Cranial): The distal portions of the right external carotid artery appear normal. There is no significant contribution to the tumor through the right external carotid artery. There is mild reflux into the internal carotid artery which is also opacified. There is no sign of fistula or dissection. Left Vertebral Artery (Cerebral): The distal portions of the left vertebral artery appear normal. There is flash-filling of the contralateral vertebral artery and the origins of the PICAs are visualized. There is no sign of aneurysm. The basilar trunk appears normal. Bilateral posterior cerebral arteries and superior cerebellar arteries appear normal. From the left HAND DRY CLEANER, there are a few circumflex branches that supply anteriorly to the posterior portion of the tumor with contrast blush in the posterior aspect of the tumor. The tumor opacification measures approximately 4 x 4 cm in the sagittal plane. The remainder of the distal portions of the posterior cerebral arteries and superior cerebellar arteries appear normal. Left Internal Carotid Artery (Cerebral): The distal portions of the cervical left internal carotid artery, petrous segment, and cavernous segments are normal. The ophthalmic origin is normal and a choroidal blush is visualized. There are a few branches off of the ophthalmic artery which appear to supply the capsule of the tumor. The supraclinoid carotid artery is displaced medially and a large posterior communicating artery appears to be stretched around the medial portion of the tumor. There is communication into the posterior circulation which is the immediate posterior aspect of the tumor. The branches of the posterior cerebral artery again supply the tumor posteriorly. The middle cerebral artery is displaced superiorly and medially and it courses over the superior portion of the tumor with a few small branches of the MCA, which supply the tumor capsule superiorly. The anterior cerebral artery appears normal. There are a few branches of the MCA that do supply the medial and superior aspect of the tumor, but is not the tumor's primary blood supply. There is a small amount of reflux from the internal carotid artery into the external carotid artery which is also opacified. Left External Carotid Artery (Cranial): The distal portions of the left external carotid artery appear normal. The superficial temporal artery and middle meningeal artery appear normal. There are posterior ethmoidal branches of the internal maxillary artery which supply the inferior and lateral portions of the tumor, with a large tumor blush. The branches in the near vicinity also supply medially toward the nasal mucosa. There does not appear to be any collateral supply to the ophthalmic artery and no choroidal blushes seen. Left Internal Maxillary Artery (Microcatheter Run): The distal portions of the left internal maxillary artery appear normal. There are medial ethmoidal branches that supply the mucosa of the nose. Distally, there are many small branches supplying the capsule of the tumor and there is a large tumor blush inferiorly and laterally in the tumor. There are no collaterals seen to the orbit or supplying the eye. Left External Carotid Artery (Post embolization): The remaining portions of the left external carotid artery appear normal. There is an abrupt end to the internal maxillary artery distally. The branches to the nasal mucosa also appear to be slower than previous, but only a very small tumor blush posteriorly is now visualized and the anterior and lateral portions of the tumor have been largely completely obliterated. There is some spasm into the trunk over the external carotid artery, but there does not appear to be any dissection or fistula. Left Common Carotid Artery (Post embolization): The distal portions of the left internal carotid artery and external carotid artery appear normal. There is still some supply to the tumor superiorly and medially by the MCA which has not changed. The ophthalmic artery remains patent and a good choroidal blush is visualized. The remainder of the branches of the SANTY and MCA appear normal and there does not appear to be any loss of branches. Right Common Femoral Artery Angiogram: The distal portion of the right common femoral artery appears normal without vascular injury. There is good runoff into the profunda and superficial femoral artery. The sheath enters near the bifurcation making this vessel not suitable for [employer]. Impressions: Diagnostic cerebral angiography reveals the known large left clinoidal meningioma measuring approximately 4 x 4.5 cm. Supply is from the left MCA, which is displaced medially and superiorly over the tumor, as well as significant supply from the left external carotid artery from posterior ethmoidal branches of the internal maxillary artery. The distal left internal maxillary artery was embolized using PVA particles which was successful. The patient tolerated the procedure well without any significant complication. The tumor blush was cut down by approximately 50 to 60% in the inferior and lateral portions of the tumor. POS99 MTDD
[2016-11-16] MEDS: FAMOTIDINE 20 MG TAB PO SCH (20:46)
[2016-11-17] MEDS: DEXAMETHASONE 10 MG/ML VIAL IVP SCH ×3 (00:20→16:32)
[2016-11-17] MEDS ORDERED: GADOBUTROL 10 ML VIAL IVP ONE (05:32)
[2016-11-17] MEDS ORDERED: THROMBIN (RECOMBINANT) 5,000 UNIT VIAL TP ONE (07:06)
[2016-11-17] MEDS ORDERED: MANNITOL 20% 100 GM/500 ML BAG IV ONE (07:06)
[2016-11-17] MEDS ORDERED: AVITENE POWDER 1 GM JAR TP ONE (07:06)
[2016-11-17] MEDS ORDERED: SURGIFLO MATRIX KIT WITH THROMBIN TP ONE ×2 (07:07→14:04)
[2016-11-17] MEDS ORDERED: BUPIVACAINE/EPI 0.25% 30 ML SDV ONE (07:07)
[2016-11-17] MEDS ORDERED: BACITRACIN 50,000 UNITS/10 ML SYR IRR ONE (07:07)
[2016-11-17] MEDS ORDERED: PROPOFOL/EMULSION 500 MG/50 ML BOTTLE IV ONE ×3 (07:17→11:39)
[2016-11-17] MEDS ORDERED: REMIFENTANIL HCL 1 MG VIAL ONE ×3 (07:18→11:39)
[2016-11-17] MEDS ORDERED: CEFAZOLIN 2 GM/DEXTROSE/100 ML BAG IV ONE (07:23)
[2016-11-17] MEDS ORDERED: SCOPOLAMINE HYDROBROMIDE 1.5 MG PATCH TD ONE ×2 (07:23→07:25)
[2016-11-17] MEDS ORDERED: MIDAZOLAM 2 MG/2 ML VIAL ONE (07:23)
[2016-11-17] MEDS ORDERED: LIDOCAINE 2% 100 MG/5 ML SYR IVP ONE (07:39)
[2016-11-17] MEDS: INSULIN LISPRO 100 UNIT/ML SC SCH ×3 (08:17→17:29)
[2016-11-17] MEDS: SENNOSIDES/DOCUSATE SODIUM TAB PO SCH ×2 (08:18→19:49)
[2016-11-17] MEDS: FAMOTIDINE 20 MG TAB PO SCH ×2 (08:18→19:49)
--- NOTE | 2016-11-17 08:24 | MR ---
MRI of the Brain With Intravenous Contrast 0604 hours Clinical Indication: Left meningioma, Stealth preop study. Technique: Stealth protocol sagittal T1 and axial FSPGR 3D images with the uneventful intravenous ad ministration of 6.5 mL Gadavist contrast. Findings: Left middle cranial fossa temporal lobe paracavernous 4.5 x 5.4 x 5 cm meningioma localize d with Stealth protocol. Midline shift toward the right of 8 mm with early uncal herniation and shift of the mesencephalon toward the right also. Surrounding left temporal and posterior fundal edema aga in noted with multiple surrounding vessels adjacent to the meningioma. Meningioma abuts the left midd le cerebral artery which is displaced cephalad and abuts the lateral wall of the paracavernous music internship al carotid artery. No definite additional enhancing lesions. Impression: Left temporal lobe meningioma with rightward subfalcine and uncal herniation localized wi th Stealth protocol for Neurosurgery.
[2016-11-17] MEDS ORDERED: ALBUMIN 5% 250 ML BOTTLE IV ONE (09:46)
[2016-11-17 10:44] LABS: BASE EXCESS -1.7 mEq/L (-2.5-2.5); BICARBONATE 20 mEq/L (22-26); HEMOGLOBIN ABG 10.8 gm/dL (12.3-15.9); IONIZED CALCIUM 1.09 MMOL/L (1.12-1.30); MEASURED OXYGEN SATURATION 100 % (92-95); PCO2 23 mmHg (34-38); PO2 285 mmHg (65-75); SODIUM ABG 135 mEq/L (137-146); TCO2 20 mEq/L (23-27)
[2016-11-17] MEDS ORDERED: POTASSIUM Cl (KCl) 20 MEQ/50 ML BAG IV ONE (10:51)
[2016-11-17 10:52] LABS: GLUCOSE 137 mg/dL (70-100)
[2016-11-17] MEDS ORDERED: ceFAZolin 1 GM VIAL ONE (11:26)
[2016-11-17] MEDS ORDERED: DEXAMETHASONE 4 MG/ML VIAL ONE ×2 (11:27)
[2016-11-17] MEDS ORDERED: PROPOFOL 200 MG/20 ML VIAL ONE (11:58)
[2016-11-17] MEDS ORDERED: THROMBIN (RECOMBINANT) 20,000 UNIT VIAL TP ONE (12:35)
[2016-11-17] MEDS: levETIRAcetam 750 MG in NS 100 ML IV SCH ×2 (12:36→19:49)
[2016-11-17] MEDS ORDERED: PROMETHAZINE HCL 25 MG/ML VIAL ONE (13:28)
[2016-11-17] MEDS ORDERED: niCARdipine/NACL/200 ML BAG IV ONE (14:16)
--- NOTE | 2016-11-17 14:33 | HOSPPROG ---
Hospitalist Progress Note Assessment/Plan: I discussed the case with CLAUDINE Ware today who will reconsult hospital medicine if new medical problems arise. Will sign off for now. Please call with further questions Objective: Vital Signs Temp Pulse Resp BP Pulse Ox 36.7 C 61 18 132/66 H 93 11/17/16 03:13 11/17/16 06:00 11/17/16 06:00 11/17/16 06:00 11/17/16 06:00 Laboratory Results 11/16/16 05:19 11/17/16 10:33 11/16/16 11/17/16 11/18/16 05:59 05:59 05:59 Intake Total 300 893 Balance 300 893 PT 12.9 SEC (12.0-15.0) 11/16/16 05:19 INR 0.98 (0.83-1.16) 11/16/16 05:19 ICD10 Worksheet Patient Problems: Problems Problem Status Diagnosed Aphasia Acute Brain mass Acute
[2016-11-17] MEDS ORDERED: niCARdipine/NACL 200 ML IV SCH (15:00)
--- NOTE | 2016-11-17 17:10 | POSTOPPROG ---
Post Op Note Date of Operation: 11/17/16 Surgeon: Carter Rondon Internal Auditor: WILLIE Campuzano Anesthesia: GET(General Endotracheal) Pre-op Diagnosis: left clinoidal meninigioma Post-op Diagnosis: same Indication: same Procedure: left OZ craniotomy and clinoidectomy for resection of meningioma Findings: large left frontotemporal meningioma Inf/Abcess present in the surg proc area at time of surgery?: No EBL: 500-1000 Complications: none Drains: Carlos Hernandez Specimen(s): left frontotemporal meningioma
--- NOTE | 2016-11-17 17:12 | SOAPPROG ---
SOAP Progress Note Assessment/Plan: Assessment: POD#0 s/p left OZ craniotomy and clinoidectomy for resection of left clinoidal meningioma Plan: 1. continue decadron 4q6 2. pain control 3. Keppra 4. MRI in AM 5. TESSA to bulb suction 6. 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
[2016-11-17] MEDS: DEXAMETHASONE 4 MG TAB PO SCH (17:28)
[2016-11-18] MEDS: DEXAMETHASONE 4 MG TAB PO SCH ×5 (00:10→23:21)
--- NOTE | 2016-11-18 03:34 | GOP ---
[f rep st] OPERATIVE REPORT DATE OF OPERATION: 11/17/2016 SURGEON: Carter Rondon MD NEUROSURGEON: Carter Rondon MD COMPOSITE LAYUP WORKER: Vania Campuzano, CHRIS. ANESTHESIA: General endotracheal. PREOPERATIVE DIAGNOSIS: Large 4.5 x 5 cm left clinoidal meningioma. POSTOPERATIVE DIAGNOSIS: Large 4.5 x 5 cm left clinoidal meningioma. PROCEDURE PERFORMED: 1. Left modified orbital zygomatic skull base approach for resection of left clinoidal meningioma us ing anterior clinoidectomy. 2. Microsurgical gross total resection of left large clinoidal meningioma. 3. Use of the operative microscope. 4. Stealth stereotactic neuronavigation for volumetric gross total resection of left anterior skull base meningioma. FINDINGS: Large skull base meningioma. SPECIMENS: Left clinoidal meningioma for permanent pathology. ESTIMATED BLOOD LOSS: Approximately 600 cc. INDICATIONS: The patient is a 56-year-old woman who presented with some word-finding difficulties ea rlier in the week. MRI of the brain was obtained, which revealed a roughly 5 cm left clinoidal menin gioma with significant compression of the brainstem, elevation of the MCA, and compression of the fro ntal lobe with some midline shift. She did have significant surrounding vasogenic edema. She was st arted on steroids, and her speech problems improved. We took her for embolization of the tumor yeste rday, and then brought her electively today for resection. DESCRIPTION OF PROCEDURE: After informed consent was obtained from the patient, the patient was brou ght to the operating room, was placed in the supine position on the operating table. A formal time-o ut was performed, identifying the patient by name, medical record number, and date of . Preoper ative antibiotics were given. The endotracheal tube was placed, and general endotracheal anesthesia was smoothly induced. All appropriate lines were placed by Anesthesia. The patient's head was place d in the Felder pins and turned slightly toward the right side. The stealth unit was then register ed to the scalp using known surface landmarks and checked for accuracy. At this point, a standard pterional curvilinear incision was marked behind the hairline from the root of the zygoma to the midline in the anterior portion of the hairline. A small bit of hair was clipp ed, and 10 cc of 0.25% Marcaine with epinephrine was infiltrated in the skin for hemostasis. The a d was then prepped and draped in the normal sterile fashion. Skin incision was made using a 10 blade and the subcutaneous tissues were dissected using monopolar electrocautery. Care was taken to prese rve the superficial temporal artery, and Cameron clips were placed for hemostasis. The entire wound wa s opened down to the temporalis fascia. We then dissected the loose areolar connective tissue betwee n the galea and temporalis fascia elevating the skin flap anteriorly. A triangular flap of pericrani al was then taken from the frontal region and elevated anteriorly for possible use later. A small mu scle cuff was taken at the superior temporal line, and the temporalis fascia and muscle were opened d own to the bone. At this point, the temporalis fascia was then opened along the posterior circumfere nce of the incision, and subfascial dissection was performed on the temporalis muscle all the way randa n to the zygoma. The frontal zygomatic process was identified as well as the root of the zygoma and the temporalis fascia was stripped from beneath with care to preserve the superficial fat pad. At th is point, the temporalis muscle was cut and was retracted anteriorly with the flap. The high-speed d rill was then used to make 3 dinora holes in standard pterional fashion and the craniotome was used to turn a standard pterional craniotomy flap. The flap was removed, and the bleeding from the dura was controlled using bipolar electrocautery. The sphenoid wing was then drilled down in parallel with the skull base. The orbitotomy was then cre ated by making 1 cut just lateral to the supraorbital notch and another cut roughly 7 mm inferior to the frontozygomatic suture. This was carried back roughly 2 to 2.5 cm, and a piece of the upper orbi t was removed en bloc. The periorbita was not entered. It was then further stripped toward the back of the orbital roof. Rongeurs were then used to remove the remainder of the orbital roof posteriorl y toward the optic nerve. In this area a lot of bleeding was encountered because the tumor blood sup ply was coming through the bone of the orbit into the tumor. The bipolar electrocautery was used to control this bleeding. We continued removal of the bone back and stripped the dura from the anterior clinoid process. The anterior clinoid process was removed using rongeurs. Gelfoam was used to cont rol all bleeding in this area. At this point, the dura was opened in a curvilinear fashion and refle cted such that it would retract the orbital contents and provide more room for light from the microsc ope. The operative microscope was brought on the field and the remainder of the procedure was perfor med under high-power magnification. We first turned our attention to the area of the anterior clinoid, and bipolar electrocautery was use d to coagulate the tumor in this location taking down some of the blood supply. We dissected mediall y identifying the left optic nerve, which was displaced medially and the carotid artery. These were carefully preserved. At this point, a small cap of the temporal tip was removed identifying a larger portion of the tumor. The tumor capsule was coagulated and then entered using scissors. Several sp ecimens were taken for permanent pathology. The ultrasonic aspirator was then used to debulk the int ernal contents of the tumor, such that further dissection could be performed. As we continued debulk ing internally, we were able to fold the capsule down on itself. We continued in the area of the car otid artery. The posterior communicating artery was identified and just lateral to this, the third n erve was also identified and carefully dissected from the tumor capsule. We continued more cephalad into the sylvian fissure where the MCA and all of its branches, which were adherent to the tumor caps ule were dissected using micro dissectors and scissors under high-power magnification. The MCA was t hen carefully protected above the tumor, and we continued with internal debulking. We then removed t he portion of the tumor from the infratemporal region over the cavernous sinus and the area of the te ntorium. As we further debulked the tumor, we were able to carefully dissect around its capsule deta radu it from some of its large venous structures and further blood supply. We continued in this fas hion until the entirety of the tumor capsule was dissected. We turned our attention once again towar d the area of the posterior communicating artery where it attached to the TELEVISION EQUIPMENT OPERATOR. There were a few smal l branches supplying tumor in this location. These were taken with bipolar electrocautery and cut wi th scissors. We then were able to remove the entirety of the tumor capsule from the temporal lobe ne aminata en bloc. At this point, the cavity was inspected, and a few small bleeders were coagulated usin g bipolar electrocautery. The cottonoid patties, which we had used for dissection were removed showi ng good, intact brain surface. This was then covered with Surgicel. The MCA and its branches were a gain inspected and none seem to have been violated with the surgery. We inspected the area of the po sterior communicating artery and posterior cerebral arteries, and blood was suctioned from the interp eduncular cistern. The third nerve and its blood supply were intact as were the carotid artery and t he optic nerve. The tumor cavity was then covered with Surgicel, and the wound was copiously irrigated removing all b lood products. There was no further bleeding. Therefore the dura was closed using interrupted 4-0 N urolon. The cavity was filled with sterile saline prior to the final closure. All bleeding was cont rolled using Gelfoam and bipolar electrocautery. A few dural tack-up stitches were placed. The orbi lara roof was then plated back in place using Suso titanium plates and screws. The craniotomy flap was plated back in place using Suso titanium plates and screws. The defect in the orbital area w as covered with titanium mesh, and this allowed for a good reconstruction of the orbital rim. The te mporalis muscle and its fascia were then closed using interrupted 2-0 Vicryl. A subgaleal TESSA drain w as placed. The wound was copiously irrigated using bacitracin irrigation. The galea was closed usin g interrupted 2-0 Vicryl, and the skin was closed using a running 4-0 Monocryl. The patient was removed from the [place] pins. The hair was washed and bacitracin ointment was plac ed over the wound. The drain was connected to a sterile drainage system. The patient was then extub ated and was transferred to the PACU in stable condition. There were no operative complications. I was scrubbed and present for the entirety of the procedure and performed the procedure myself. FLUIDS: Per the anesthesia record. URINE OUTPUT: Per the anesthesia record. DRAIN: A subgaleal TESSA. /[id number]/MODL
[2016-11-18] MEDS: INSULIN LISPRO 100 UNIT/ML SC SCH ×4 (08:45→17:38)
[2016-11-18] MEDS: FAMOTIDINE 20 MG TAB PO SCH ×2 (08:57→20:26)
[2016-11-18] MEDS: OXYCODONE/APAP 5/325 TAB PO PRN ×3 (08:57→17:37)
[2016-11-18] MEDS: SENNOSIDES/DOCUSATE SODIUM TAB PO SCH ×2 (08:57→20:25)
[2016-11-18] MEDS: levETIRAcetam 750 MG in NS 100 ML IV SCH (09:01)
--- NOTE | 2016-11-18 10:27 | NEUSURGPN ---
Date of Surgery: 11/17/16 Post Op Day: 1 Assessment/Plan: Assessment: POD #1 s/p left OZ craniotomy and clinoidectomy for resection of left clinoidal meningioma Plan: 1. continue decadron 4q6 2. pain control 3. Keppra 4. MRI pending today 5. TESSA to bulb suction 6. speech/pt/ot 7. d/w Dr Rondon and will see later this am 8. Call with any questions or concerns Subjective: Awake and alert. NAD. Eating/drinking and voiding. No f/c/n/v/d. Objective: AAOx3, expressive aphasia slightly worse than preop left partial 3rd nerve palsy, right PERRL strength full, no drift incision c/d/i Neuro Check Frequency: per routine Urinary Catheter in Place: No - Physician Discussed Patient with DrWesley: Nela Patient Seen by : Nela Neurosurgery Physical Exam - Vitals, I&O, Labs I and O 11/17/16 11/18/16 11/19/16 05:59 05:59 05:59 Intake Total 893 1836.8 Output Total 2915 Balance 893 -1078.2 Intake: Oral (ml) 400 1500 IV Intake (ml) 200 318 IV Infused (ml) 293 18.8 Famotidine 20 mg/NaCl 50 50 ml @ 200 mls/hr IV Q12HRS [facility] Rx#:[id number] levETIRAcetam 750 mg In 108 Ns 100 ml @ 420 mls/hr IV BID [facility] Rx#:[id number] POTASSIUM Cl (KCl) 20 meq 135 In Lr 1,000 ml @ 75 mls/ hr IV CONT [facility] Rx#: [id number] niCARdipine/NACL 200 ml @ 18.8 Titrate IV CONT [facility] Rx#: [id number] Output: Urine (ml) 2800 Catheter 2800 Wound Drainage (ml) 90 Left Head Carlos Hernandez 90 Wound Drainage (ml) 25 Left Posterior Head 25 Carlos Hernandez Other: Intake Quantity Yes Sufficient Number of Voids Toilet 1 Bedpan 2 Incontinence 1 Number of Stools Catheter 0 Vital Signs Temp Pulse Resp BP Pulse Ox 36.6 C 94 18 121/63 H 96 11/18/16 07:00 11/18/16 09:54 11/18/16 09:54 11/18/16 09:54 11/18/16 09:54 Laboratory Results 11/16/16 05:19 11/17/16 10:33 ICD10 Worksheet Patient Problems: Problems Problem Status Diagnosed Aphasia Acute Brain mass Acute
--- NOTE | 2016-11-18 14:09 | CPEKG ---
Heart Rate: 107 RR Interval: 561 P-R Interval: 140 QRSD Interval: 82 QT Interval: 348 QTC Interval: 465 P [place]: 46 QRS [place]: 3 T Wave [place]: 11 EKG Severity - OTHERWISE NORMAL ECG - EKG Impression: SINUS TACHYCARDIA Electronically Signed By: Jovon Burr 19-Nov-2016 10:50:04
--- NOTE | 2016-11-18 14:25 | GCON ---
[f rep st] CONSULTATION LIFTER CONSULTATION REASON FOR ADMISSION: Brain mass. HISTORY OF PRESENT ILLNESS: The patient is a very pleasant 56-year-old white female with past medica l history of breast cancer diagnosed in 1998. She presented to the emergency room with balance probl ems as well as memory loss. Apparently, the memory loss has been increasing over the year prior. In the emergency room, she was found to have a large brain mass. She was subsequently admitted. On , cerebral arteriogram was performed with microcatheter angiography and embolization of the f eeder vessels via left internal maxillary ethmoidal branches. She underwent resection by Dr. Nela york 11/17/2016 with a left craniotomy and clinoidectomy for a large left frontotemporal meningioma. In discussion with the patient, she is having trouble with word finding. Her left eye is closed and so mewhat swollen; however, she does have vision of that left eye. She is resting comfortably. She is scheduled for physical therapy later on today. PAST MEDICAL HISTORY: Breast cancer. ALLERGIES: No known allergies to medications. SOCIAL HISTORY: No history of tobacco use. Infrequent alcohol use. She is retired and , has good family support. PHYSICAL EXAMINATION: VITAL SIGNS: Blood pressure is 121/59, pulse 101, respirations 17, temperatur e 36.6, oxygen saturation 96% on room air. GENERAL: She is a well-developed 56-year-old white femal e, who is resting comfortably, in no acute distress. HEENT: Right eye is PERRL, EOMI. Left eye is swollen shut. There is a large incision on the left frontal part of her head. Throat shows no eryth chinmay or tonsillar hypertrophy. NECK: Supple. There is no cervical adenopathy. HEART: Regular rate and rhythm without murmurs, rubs, or gallops. LUNGS: Clear to auscultation. No wheeze or rhonchi. ABDOMEN: Soft, nontender. Bowel sounds present in all 4 quadrants. EXTREMITIES: No clubbing, cy anosis, or edema. LABORATORIES: Arterial blood gas dated 11/17 shows pH of 7.5, pCO2 of 23, pO2 of 285, bicarbonate of 20, oxygen saturation 100%. Blood sugars have ranged from 150 to 139. IMPRESSION: 1. Large frontal meningioma, status post craniotomy and clinoidectomy. 2. History of breast cancer. 3. Pain currently controlled. 4. Nutrition is adequate. RECOMMENDATIONS: 1. PT and OT. 2. Out of bed. 3. DVT and PE prophylaxis. Holding anticoagulation for now. 4. Stress ulcer prophylaxis. /[id number]/MODL
[2016-11-18] MEDS ORDERED: GADOBUTROL 10 ML VIAL IVP ONE (15:09)
--- NOTE | 2016-11-18 17:00 | MR ---
MRI of the Brain (Without and With Contrast) 1502 hours Clinical Indication: Postop meningioma resection.. Technique: T1-weighted images were acquired axially and sagittally from the foramen magnum to the ve rtex. Axial fast inversion recovery, fast T2-weighted, susceptibility weighted imaging, and diffusio n-weighted axial images were obtained without contrast. Post contrast axial, sagittal, and coronal im ages with the uneventful intravenous administration of 6.5 mL Gadavist contrast. Findings: There has been interval resection of the large enhancing presumed meningioma with surgical defect along the left anterior aspect of the middle cranial fossa adjacent to the clinoid. There may been resection of posterior lateral left orbital wall superiorly that may have been involved. CSF si gnal is present where the mass previously resided. There is edema in the adjacent left temporal lobe white matter extending around the posterior lateral aspect of the left basal ganglia. The left to rig ht shift now measures about 9 mm. There is some gas and fluid in the subdural space anteriorly as exp ected postoperatively as well as subdural collection underlying the craniotomy defect on the left. Th ere is proptosis of the left orbit that could be related to some fluid along the posterior lateral hollins perior wall of the left bony orbit in region of bony resection. There is no evidence of enhancement a long the margins of the tumor resection. There is diffuse enhancement of the dura over the cerebral p arenchyma without focal nodularity. There is no evidence of intracranial hemorrhage, vascular reformation, or evidence of cerebral infarc tion. Impression: 1. Postoperative changes related to resection of large left paraclinoid meningioma as detailed above. No abnormal enhancement is seen along the margins of the tumor resection to suggest residual tumor. 2. Mild proptosis left orbit probably related to edema and fluid collection along the posterior later al left orbital wall probably associated with resection of this portion of the bone. 3. Moderate left to right shift persists with residual White matter edema left temporal lobe extendin g into the posterior lateral left basal ganglia region. 4. Subdural fluid and gas anteriorly over the frontal lobes.
[2016-11-18] MEDS: levETIRAcetam 500 MG TAB PO SCH (20:26)
[2016-11-19] MEDS: OXYCODONE/APAP 5/325 TAB PO PRN ×2 (05:36→14:33)
[2016-11-19] MEDS: DEXAMETHASONE 4 MG TAB PO SCH ×4 (05:37→23:10)
[2016-11-19] MEDS: levETIRAcetam 500 MG TAB PO SCH ×2 (08:06→20:03)
[2016-11-19] MEDS: FAMOTIDINE 20 MG TAB PO SCH ×2 (08:06→20:03)
[2016-11-19] MEDS: SENNOSIDES/DOCUSATE SODIUM TAB PO SCH ×2 (08:07→20:03)
[2016-11-19] MEDS: INSULIN LISPRO 100 UNIT/ML SC SCH ×3 (08:21→18:35)
--- NOTE | 2016-11-19 08:32 | NEUSURGPN ---
Date of Surgery: 11/17/16 Post Op Day: 2 Assessment/Plan: Assessment: POD #2 s/p left OZ craniotomy and clinoidectomy for resection of left clinoidal meningioma Plan: 1. continue decadron 4q6 for today-will need a 14 day taper 2. pain control-doing well with current pain management 3. Keppra-continue 4. MRI shows good resection. Reviewed with Pt and Dr Rondon 5. TESSA removed and site looks good 6. speech/pt/ot 7. d/w Dr Rondon and will see later this am 8. Call with any questions or concerns 9. Pt ok for transfer to floor today 10. dc desouza Subjective: Awake and alert. Pt rested thru the night. No neck/chest/abd or gu complaints. No f/c/n/v/d. Objective: AAOx3, expressive aphasia slightly worse than preop but better over the last few days left partial 3rd, 4, 6 nerve palsy-likely related to post op swelling, right PERRL strength full, no drift incision c/d/i Neuro Check Frequency: per routine Urinary Catheter in Place: Yes Urinary Catheter Indication: Other (Use Comment) (to be removed today) - Physician Discussed Patient with : Nela Patient Seen by : Nela Neurosurgery Physical Exam - Vitals, I&O, Labs I and O 11/18/16 11/19/16 11/20/16 05:59 05:59 05:59 Intake Total 1836.8 3187 240 Output Total 2915 5040 Balance -1078.2 -1853 240 Intake: Oral (ml) 1500 2480 240 IV Intake (ml) 318 600 IV Infused (ml) 18.8 107 levETIRAcetam 750 mg In 107 Ns 100 ml @ 420 mls/hr IV BID [facility] Rx#:[id number] niCARdipine/NACL 200 ml @ 18.8 Titrate IV CONT [facility] Rx#: [id number] Output: Urine (ml) 2800 5000 Catheter 2800 5000 Wound Drainage (ml) 90 Left Head Carlos Hernandez 90 Wound Drainage (ml) 25 40 Left Posterior Head 25 40 Carlos Hernandez Other: Intake Quantity Yes Yes Sufficient Number of Stools Catheter 0 Vital Signs Temp Pulse Resp BP Pulse Ox 36.9 C 110 H 16 136/65 H 95 11/19/16 08:00 11/19/16 08:00 11/19/16 08:00 11/19/16 08:00 11/19/16 08:00 Laboratory Results 11/16/16 05:19 11/17/16 10:33 ICD10 Worksheet Patient Problems: Problems Problem Status Diagnosed Aphasia Acute Brain mass Acute
[2016-11-19] MEDS ORDERED: METOPROLOL TARTRATE 5 MG/5 ML INJ ONE (09:56)
[2016-11-19] MEDS ORDERED: METOPROLOL TARTRATE 5 MG/5 ML INJ IVP PRN (09:59)
[2016-11-19] MEDS ORDERED: hydrALAZINE 10 MG TAB PO PRN (15:29)
[2016-11-19] MEDS: METOPROLOL TARTRATE 5 MG/5 ML INJ IVP PRN (15:45)
[2016-11-20] MEDS: METOPROLOL TARTRATE 5 MG/5 ML INJ IVP PRN (04:18)
[2016-11-20] MEDS: DEXAMETHASONE 4 MG TAB PO SCH ×3 (05:33→22:40)
--- NOTE | 2016-11-20 08:04 | NEUSURGPN ---
Date of Surgery: 11/16/16 Post Op Day: 4 Assessment/Plan: Assessment: POD #4 s/p left OZ craniotomy and clinoidectomy for resection of left clinoidal meningioma Plan: -decadron [id number] start a 14 day taper -pain control-doing well with current pain management -Keppra-continue -MRI shows good resection. Reviewed with Pt and Dr Rondon -TESSA removed and site looks good -speech/pt/ot-CPM -pt seen by Dr Rondon as well this am-d/w the plan -call with any questions or concerns -voiding well -warning signs given -case management to see as well this am Subjective: No new complaints or concerns. No f/c/n/v/d. No pollack/neck/chest/abd or gu complaints. Objective: AAOx3, expressive aphasia slightly worse than preop but better over the last few days left 3rd nerve palsy-likely related to post op swelling, right PERRL strength full, no drift incision c/d/i Neuro Check Frequency: per routine Urinary Catheter in Place: No - Physician Discussed Patient with : Nela Patient Seen by : Nela Neurosurgery Physical Exam - Vitals, I&O, Labs I and O 11/19/16 11/20/16 11/21/16 05:59 05:59 05:59 Intake Total 3187 2100 Output Total 5040 2450 Balance -1853 -350 Intake: Oral (ml) 2480 2100 IV Intake (ml) 600 IV Infused (ml) 107 levETIRAcetam 750 mg In 107 Ns 100 ml @ 420 mls/hr IV BID [facility] Rx#:[id number] Output: Urine (ml) 5000 2450 Toilet 1750 Catheter 5000 700 Wound Drainage (ml) 40 Left Posterior Head 40 Carlos Hernandez Other: Intake Quantity Yes Sufficient Number of Voids Toilet 1 Vital Signs Temp Pulse Resp BP Pulse Ox 36.9 C 73 14 135/84 H 93 11/20/16 07:24 11/20/16 07:24 11/20/16 07:24 11/20/16 07:24 11/20/16 07:24 Laboratory Results 11/16/16 05:19 11/17/16 10:33 ICD10 Worksheet Patient Problems: Problems Problem Status Diagnosed Aphasia Acute Brain mass Acute
[2016-11-20] MEDS ORDERED: *MD ORDERING ONLY-DEXAMETHASONE TAPER IVP/PO SCH (08:30)
[2016-11-20] MEDS: SENNOSIDES/DOCUSATE SODIUM TAB PO SCH ×2 (08:49→19:59)
[2016-11-20] MEDS: levETIRAcetam 500 MG TAB PO SCH ×2 (08:49→19:59)
[2016-11-20] MEDS: FAMOTIDINE 20 MG TAB PO SCH ×2 (08:49→19:59)
[2016-11-20] MEDS: INSULIN LISPRO 100 UNIT/ML SC SCH ×3 (08:50→17:36)
[2016-11-20] MEDS ORDERED: DEXAMETHASONE VARIABLE DOSE IVP/PO SCH (14:00)
[2016-11-21] MEDS: DEXAMETHASONE 4 MG TAB PO SCH (05:38)
[2016-11-21] MEDS: INSULIN LISPRO 100 UNIT/ML SC SCH ×3 (07:55→18:26)
--- NOTE | 2016-11-21 08:10 | NEUSURGPN ---
Assessment/Plan: Assessment: POD #5 s/p left OZ craniotomy and clinoidectomy for resection of left clinoidal meningioma Plan: -Overall doing well. Had some hallucinations but most likely due to steroids and will taper off of these over the next 2 weeks. -decadron [id number] off over the next 2 weeks -pain control-doing well with current pain management -Keppra-continue -MRI shows good resection -speech/pt/ot-CPM -d/w the plan- will plan for hopeful rehab evaluation today -call with any questions or concerns -case management to see today -Continue PT/OT/ST -Patient discussed with Dr. Rondon Subjective: Patient states she is doing well, no headaches. Was "seeing things" last night in her room. Denies nausea, vomiting. Objective: AAOx3, expressive aphasia improved left 3rd nerve palsy-likely related to post op swelling, right PERRL strength full, no drift incision c/d/i - Physician Discussed Patient with Dr.: Rondon Neurosurgery Physical Exam - Vitals, I&O, Labs I and O 11/20/16 11/21/16 11/22/16 05:59 05:59 05:59 Intake Total 2100 400 Output Total 2450 Balance -350 400 Intake: Oral (ml) 2100 400 Output: Urine (ml) 2450 Toilet 1750 Catheter 700 Other: Output Comment Toilet missed the hat Number of Voids Toilet 1 2 Vital Signs Temp Pulse Resp BP Pulse Ox 37.0 C 81 16 126/86 H 94 11/21/16 07:26 11/21/16 07:26 11/21/16 07:26 11/21/16 07:26 11/21/16 07:26 Laboratory Results 11/16/16 05:19 11/17/16 10:33 ICD10 Worksheet Patient Problems: Problems Problem Status Diagnosed Aphasia Acute Brain mass Acute
[2016-11-21] MEDS: FAMOTIDINE 20 MG TAB PO SCH ×2 (08:45→21:28)
[2016-11-21] MEDS: SENNOSIDES/DOCUSATE SODIUM TAB PO SCH ×2 (08:45→21:28)
[2016-11-21] MEDS: levETIRAcetam 500 MG TAB PO SCH ×2 (08:45→21:28)
[2016-11-21] MEDS: DEXAMETHASONE VARIABLE DOSE IVP/PO SCH ×2 (14:14→21:29)
[2016-11-21] MEDS ORDERED: DEXAMETHASONE 2 MG TAB ONE (21:08)
[2016-11-22] MEDS: DEXAMETHASONE VARIABLE DOSE IVP/PO SCH (05:43)
[2016-11-22 07:50] VITALS: BP 111/63; PULSE 79; RESP 16; TEMP 98.6; O2SAT 94
--- NOTE | 2016-11-22 08:13 | SOAPPROG ---
SOAP Progress Note Assessment/Plan: Assessment: 56 yo F sp craniotomy for resection of left frontotemporal lesion, likely meningioma Plan: stable and doing well overall :) plan to dc home with [facility] on decadron and keppra please call with neuro changes discussed with DR Rondon 11/16/16 07:13 11/22/16 08:11 Subjective: no headaches, no N/V. Objective: Vital Signs Temp Pulse Resp BP Pulse Ox 37.0 C 79 16 111/63 94 11/22/16 07:49 11/22/16 07:49 11/22/16 07:49 11/22/16 07:49 11/22/16 07:49 Laboratory Results 11/16/16 05:19 11/17/16 10:33 11/21/16 11/22/16 11/23/16 05:59 05:59 05:59 Intake Total 400 Balance 400 PT 12.9 SEC (12.0-15.0) 11/16/16 05:19 INR 0.98 (0.83-1.16) 11/16/16 05:19 AAOX4, +FC left eyes swelling pupils: 7 mm ou left CN 3 palsy SARAH x 4 + light touch C/D/I ICD10 Worksheet Patient Problems: Problems Problem Status Diagnosed Aphasia Acute Brain mass Acute
--- NOTE | 2016-11-22 08:14 | PDIAF ---
- Diagnosis Code Status: Full Code - Medication Management Discharge Medications: Medications to Continue on Transfer C/E/Zn/Cu/OM3/DHA/EPA/LUT/ZEAX [Preservision Areds 2 Softgel] 1 each PO DAILY [Last Taken Unknown] Herbals/Supplements -Info Only 1 ea PO DAILY 11/13/16 [Last Taken Unknown] Multivitamins [Multivitamin (*)] 1 each PO DAILY 11/13/16 [Last Taken Unknown] [place]-3 Fatty Acids [Fish Oil 1000 mg (*)] 1,000 mg PO DAILY 11/13/16 [Last Taken Unknown] Dexamethasone [Decadron 2 MG (*)] 2 mg PO DAILY #0 tab 11/22/16 [Last Taken Unknown] Famotidine [Pepcid 20 MG (*)] 20 mg PO BID #0 tab 11/22/16 [Last Taken Unknown] levETIRAcetam [Keppra 500 mg (*)] 750 mg PO BID #0 tab 11/22/16 [Last Taken Unknown] oxyCODONE/APAP 5/325 [Percocet 5/325 (*)] 1 - 2 tab PO Q4HRS PRN #0 tab [Last Taken Unknown] Discharge Medications: Refer to the Discharge Home Medication list for PRN reason. - Orders Services needed: Home Care, Physical Therapy, Occupational Therapy, Speech Language Pathologist Home Care Face to Face: I certify that this patient was under my care and that I had the required [id number] encounter meeting the encounter requirements on the discharge day. My findings support the fact that the patient is homebound as defined in CMS Chapter 7 Medicare Benefits Manual 30.1.1, The condition of the patient is such that there exists a normal inability to leave home and consequently, leaving home would require a considerable and taxing effort. Diet Recommendation: no restrictions on diet Diet Texture: Regular Texture Diet Additional: follow up with Dr Rondon in 7-10 days - Follow Up Care Current Providers and Referrals: Ruthann Mcgowan MD [Primary Care Provider] - As per Instructions
[2016-11-22] MEDS: INSULIN LISPRO 100 UNIT/ML SC SCH (08:25)
[2016-11-22] MEDS: SENNOSIDES/DOCUSATE SODIUM TAB PO SCH (08:29)
[2016-11-22] MEDS: FAMOTIDINE 20 MG TAB PO SCH (08:29)
[2016-11-22] MEDS: levETIRAcetam 500 MG TAB PO SCH (08:29)
[2016-11-22] MEDS ORDERED: DEXAMETHASONE VARIABLE DOSE IVP/PO SCH (18:00)
[2016-11-26] MEDS ORDERED: DEXAMETHASONE VARIABLE DOSE IVP/PO SCH (06:00)
== END 2016-11-22 11:47 | disposition home health service (06) | DRG 25 ==
LOC: F2N 16:09 → F3N 11-14 09:15 → F2N 11-16 13:47 → F3N 11-19 14:46
PROVIDERS: ADMIT Neurological Surgery; ATTEND Neurological Surgery
DX: D32.0 Benign neoplasm of cerebral meninges (principal); G93.5 Compression of brain; R47.01 Aphasia; R73.9 Hyperglycemia, unspecified; Z85.3 Personal history of malignant neoplasm of breast
CPT/HCPCS: 82947-QW; 92507-GN; 92523-GN; 96365; 97110-GP; 97112-GP; 97116-GP; 97162-GP; 97164-GP; 97165-GO; 97530-GP; 97535-GO; A9585; C1713; C1769; C1887; C1894; J0690; J1100; J1644; J1815; J1953; J2001; J2250; J2405; J2550; J2704; J3010; P9041; Q9967

== ENCOUNTER → 2017-02-05 | Outpatient (CLI) | payer OTHER ==
[~2017-02-05] MED LIST: GADOBUTROL 10 ML VIAL IVP ONE
== END ==
LOC: FIMAGING 18:35
PROVIDERS: ATTEND Radiology Diagnostic Radiology
DX: Z98.890 Other specified postprocedural states (principal); D33.2 Benign neoplasm of brain, unspecified
CPT/HCPCS: A9585

== ENCOUNTER → 2017-05-28 | Outpatient (CLI) | payer OTHER | LOC: CIMAGING 07:53 | PROVIDERS: ATTEND Family Medicine | DX: Z12.31 Encounter for screening mammogram for malignant neoplasm of breast (principal); Z85.3 Personal history of malignant neoplasm of breast | CPT/HCPCS: G0202 ==

== ENCOUNTER → 2018-10-29 | Outpatient (CLI) | payer OTHER | LOC: FIMAGING 08:01 | PROVIDERS: ATTEND Neurological Surgery | DX: D33.2 Benign neoplasm of brain, unspecified (principal) | CPT/HCPCS: A9585 ==